=== PATIENT | male | born 1970 | race Caucasian/White ===

== ENCOUNTER 2017-04-10 21:53 | Inpatient (IN) | payer MEDICARE, MEDICAID ==
[~2017-04-10] VITALS: Ht 170.2 cm; Wt 91.6 kg
[~2017-04-10 21:53] MED LIST: ALBU8.5H8 INH; ATOR20TA64 PO; CANA300T PO; CLON0.5T4 PO; DIAZ5TAB4 PO; DULO60CA41 PO; FENO48TA4 PO; FLO110 INH; INSU100V9 SUBCUT; ISOS30TA PO; LISD10CA PO; LOSA1TAB34 PO; METF1000 PO; METO25TA3 PO; NITSL SL; OXYC-133 PO; PANT20TA2 PO; POTA-118 PO; PREG75CA PO; ZOLP10TA2 PO
[2017-04-10 21:56] VITALS: BP_SYST 168
[2017-04-10] MEDS ORDERED: NACL 0.9% 1,000 ML IV ONE (22:14)
[2017-04-10] MEDS ORDERED: ASPIRIN 81 MG TAB.CHEW PO ONE (22:15)
[2017-04-10 22:33] LABS: BASOPHILS % (AUTO) 0.5 % (0.0-2.0); EOSINOPHILS % (AUTO) 0.6 % (0.0-4.0); HEMATOCRIT 47.7 % (36-54); HEMOGLOBIN 15.9 g/dL (14.0-18.0); LYMPHOCYTES # (AUTO) 2.2 K/uL (1.0-5.5); MEAN CORPUSCULAR HEMOGLOBIN 29 pg (27-31); MEAN CORPUSCULAR HGB CONC 33 % (32-36); MEAN CORPUSCULAR VOLUME 88 fL (79.0-98.0); MONOCYTES # (AUTO) 0.5 K/uL (0.0-1.0); MONOCYTES % (AUTO) 6.7 % (1.7-9.3); NEUTROPHILS # (AUTO) 5.2 K/uL (1.8-7.7); NEUTROPHILS % (AUTO) 64.2 % (40.0-70.0); PLATELET COUNT (AUTO) 293 K/uL (130-430); RED BLOOD CELL COUNT(AUTO) 5.45 MIL/uL (4.2-6.2); RED CELL DISTRIBUTION WIDTH 13.1 % (9.0-15.0); WHITE BLOOD COUNT (AUTO) 7.9 K/uL (4.8-10.8)
[2017-04-10 22:35] LABS: ANION GAP 10 (5-15); CALCIUM 9.7 mg/dL (8.4-11.0); CHLORIDE 103 mmol/L (98-107); CREATININE 0.91 mg/dL (0.55-1.30); GLUCOSE 125 mg/dL (70-99); POTASSIUM 3.2 mmol/L (3.5-5.1); SODIUM SERUM 139 mmol/L (136-145); UREA NITROGEN, BLOOD 9 mg/dL (8-21)
[2017-04-10 22:36] LABS: GFR AFRICAN AMERICAN 115 mL/min (>90)
[2017-04-10 22:38] LABS: PROTHROMBIN TIME 10.6 SECS (9.5-12.5)
[2017-04-10 22:44] LABS: ALANINE AMINOTRANSFERASE 31 U/L (12-78); ALBUMIN 4.5 g/dL (3.4-4.8); ASPARTATE AMINOTRANSFERASE 20 U/L (10-37); TOTAL BILIRUBIN 0.7 mg/dL (0.0-1.0)
[2017-04-10] MEDS ORDERED: NITROGLYCERIN 1 INCH (GM) OINT. TP ONE (22:45)
[2017-04-10] MEDS ORDERED: MORPHINE 2 MG/ML INJ. SYRINGE IVP ONE (23:15)
[2017-04-10] MEDS ORDERED: BUSP10TA3 PO (23:52)
[2017-04-10] MEDS ORDERED: GLIP5TAB13 PO (23:52)
[2017-04-10] MEDS ORDERED: CLOP75TA2 PO (23:52)
[2017-04-11] VITALS (7 sets, daily range): BP systolic 93–140
[2017-04-11] MEDS ORDERED: POTASSIUM CHLORIDE 20 MEQ TAB.PRT.SR PO ONE (01:00)
[2017-04-11] MEDS ORDERED: DIAZEPAM 5 MG TABLET (VALIUM) PO PRN (01:15)
[2017-04-11] MEDS ORDERED: ZOLPIDEM TARTRATE 5 MG TABLET PO PRN (01:15)
[2017-04-11] MEDS ORDERED: DEXTROSE 50% JECT 50 ML DISP.SYRIN IVP PRN (01:15)
[2017-04-11] MEDS ORDERED: clonazePAM 0.5 MG TABLET PO PRN (01:15)
[2017-04-11] MEDS: metFORMIN HCL 500 MG TABLET PO SCH ×2 (08:09→17:14)
[2017-04-11] MEDS: CANAGLIFLOZIN 300 MG TABLET PO SCH ×2 (08:53→09:16)
[2017-04-11] MEDS: LOSARTAN POTASSIUM 50 MG TABLET (COZAAR) PO SCH (09:00)
[2017-04-11] MEDS ORDERED: NON-FORMULARY MEDICATION (Isosorbide Dinitrate 30 MG) PO SCH (09:00)
[2017-04-11] MEDS: HYDROCHLOROTHIAZIDE 12.5 MG CAPSULE (HCTZ) PO SCH (09:00)
[2017-04-11] MEDS ORDERED: INSULIN GLARGINE 100 UNITS/ML 10 ML VIAL SUBCUT SCH (09:00)
[2017-04-11] MEDS ORDERED: LOSARTAN/HYDROCHLOROTHIAZIDE TAB (HYZAAR 50-12.5 MG) PO SCH (09:00)
[2017-04-11] MEDS ORDERED: LISDEXAMFETAMINE DIMESYLATE 10 MG PO SCH (09:00)
[2017-04-11] MEDS: ENOXAPARIN SODIUM 40 MG/0.4 ML SYRINGE SUBCUT SCH (09:15)
[2017-04-11] MEDS: busPIRone HCL 5 MG TABLET PO SCH ×2 (09:16→20:43)
[2017-04-11] MEDS: PREGABALIN 25 MG CAPSULE (LYRICA) PO SCH ×3 (09:16→20:41)
[2017-04-11] MEDS: FENOFIBRATE NANOCRYSTALLIZED 48 MG TABLET (TRICOR) PO SCH (09:16)
[2017-04-11] MEDS: CLOPIDOGREL BISULFATE 75 MG TABLET PO SCH (09:16)
[2017-04-11] MEDS: METOPROLOL SUCCINATE 25 MG TAB.SR.24H (TOPROL XL) PO SCH ×2 (09:17→20:42)
[2017-04-11] MEDS: DULoxetine HCL 30 MG CAPSULE.DR (CYMBALTA) PO SCH (09:17)
[2017-04-11] MEDS: POTASSIUM CHLORIDE 10 MEQ TAB.PRT.SR PO SCH (09:17)
[2017-04-11] MEDS: PANTOPRAZOLE SODIUM 40 MG TAB PO SCH (09:24)
[2017-04-11 09:27] LABS: CALCIUM 8.5 mg/dL (8.4-11.0); CHLORIDE 102 mmol/L (98-107); CREATININE 0.88 mg/dL (0.55-1.30); GLUCOSE 167 mg/dL (70-99); POTASSIUM 3.3 mmol/L (3.5-5.1); UREA NITROGEN, BLOOD 10 mg/dL (8-21)
[2017-04-11 09:52] LABS: ANION GAP 15 (5-15); GFR AFRICAN AMERICAN 119 mL/min (>90); SODIUM SERUM 141 mmol/L (136-145)
[2017-04-11 11:08] LABS: CHOLESTEROL 238 mg/dL (<200); TRIGLYCERIDES 345 mg/dL (30-150)
[2017-04-11 11:09] LABS: HDL CHOLESTEROL 33 mg/dL (>45); LDL CHOLESTEROL 132 mg/dL (<100)
[2017-04-11] MEDS ORDERED: ISOSORBIDE MONONITRATE 30 MG TAB.ER.24H PO ONE (11:45)
[2017-04-11] MEDS: OXYCODONE/ACETAMINOPHEN *10*mg/325 mg TABLET PO PRN ×2 (13:06→20:41)
[2017-04-11] MEDS: NITROGLYCERIN 0.4 MG TAB.SUBL SL PRN ×2 (17:14→23:50)
[2017-04-11] MEDS: INSULIN REGULAR, HUMAN 100 UNITS/ML, 10 ML VIAL (novoLIN R) SUBCUT PRN ×2 (17:29→20:50)
[2017-04-11] MEDS: ATORVASTATIN 20 MG TABLET PO SCH (20:43)
[2017-04-12 01:22] VITALS: BP_SYST 109
[2017-04-12 04:12] VITALS: BP_SYST 102
[2017-04-12] MEDS: NITROGLYCERIN 0.4 MG TAB.SUBL SL PRN ×4 (05:09→21:29)
[2017-04-12] MEDS: CANAGLIFLOZIN 300 MG TABLET PO SCH (05:58)
[2017-04-12] MEDS: OXYCODONE/ACETAMINOPHEN *10*mg/325 mg TABLET PO PRN (06:03)
[2017-04-12 06:22] LABS: BASOPHILS % (AUTO) 0.3 % (0.0-2.0); EOSINOPHILS # (AUTO) 0.2 K/uL (0.0-0.4); EOSINOPHILS % (AUTO) 2.3 % (0.0-4.0); HEMATOCRIT 42.3 % (36-54); HEMOGLOBIN 13.9 g/dL (14.0-18.0); LYMPHOCYTES # (AUTO) 2.3 K/uL (1.0-5.5); MEAN CORPUSCULAR HEMOGLOBIN 29 pg (27-31); MEAN CORPUSCULAR HGB CONC 33 % (32-36); MEAN CORPUSCULAR VOLUME 89 fL (79.0-98.0); MONOCYTES # (AUTO) 0.4 K/uL (0.0-1.0); MONOCYTES % (AUTO) 6.7 % (1.7-9.3); NEUTROPHILS # (AUTO) 3.7 K/uL (1.8-7.7); NEUTROPHILS % (AUTO) 55.7 % (40.0-70.0); PLATELET COUNT (AUTO) 275 K/uL (130-430); RED BLOOD CELL COUNT(AUTO) 4.76 MIL/uL (4.2-6.2); RED CELL DISTRIBUTION WIDTH 13.3 % (9.0-15.0); WHITE BLOOD COUNT (AUTO) 6.6 K/uL (4.8-10.8)
[2017-04-12 07:46] VITALS: BP_SYST 113
[2017-04-12] MEDS: PANTOPRAZOLE SODIUM 40 MG TAB PO SCH (08:47)
[2017-04-12] MEDS: DULoxetine HCL 30 MG CAPSULE.DR (CYMBALTA) PO SCH (08:47)
[2017-04-12] MEDS: POTASSIUM CHLORIDE 10 MEQ TAB.PRT.SR PO SCH (08:47)
[2017-04-12] MEDS: busPIRone HCL 5 MG TABLET PO SCH ×2 (08:47→21:09)
[2017-04-12] MEDS: PREGABALIN 25 MG CAPSULE (LYRICA) PO SCH ×3 (08:48→21:08)
[2017-04-12] MEDS: metFORMIN HCL 500 MG TABLET PO SCH ×2 (08:48→17:30)
[2017-04-12] MEDS: FENOFIBRATE NANOCRYSTALLIZED 48 MG TABLET (TRICOR) PO SCH (08:48)
[2017-04-12] MEDS: ISOSORBIDE MONONITRATE 30 MG TAB.ER.24H PO SCH (08:48)
[2017-04-12] MEDS: LOSARTAN POTASSIUM 50 MG TABLET (COZAAR) PO SCH (08:48)
[2017-04-12] MEDS: CLOPIDOGREL BISULFATE 75 MG TABLET PO SCH (08:49)
[2017-04-12] MEDS: METOPROLOL SUCCINATE 25 MG TAB.SR.24H (TOPROL XL) PO SCH ×2 (08:49→21:10)
[2017-04-12] MEDS: HYDROCHLOROTHIAZIDE 12.5 MG CAPSULE (HCTZ) PO SCH (08:50)
[2017-04-12] MEDS: ENOXAPARIN SODIUM 40 MG/0.4 ML SYRINGE SUBCUT SCH (08:50)
[2017-04-12] MEDS: LISDEXAMFETAMINE 10 MG PO SCH (08:51)
[2017-04-12 12:40] VITALS: BP_SYST 103
[2017-04-12 16:18] VITALS: BP_SYST 94
[2017-04-12] MEDS: INSULIN REGULAR, HUMAN 100 UNITS/ML, 10 ML VIAL (novoLIN R) SUBCUT PRN (17:35)
[2017-04-12 20:00] VITALS: BP_SYST 113
[2017-04-12] MEDS: ATORVASTATIN 20 MG TABLET PO SCH (21:09)
[2017-04-13] VITALS (7 sets, daily range): BP systolic 119–135
[2017-04-13] MEDS: NITROGLYCERIN 0.4 MG TAB.SUBL SL PRN ×4 (04:50→22:14)
[2017-04-13] MEDS: CANAGLIFLOZIN 300 MG TABLET PO SCH (05:56)
[2017-04-13] MEDS: metFORMIN HCL 500 MG TABLET PO SCH ×2 (08:00→17:34)
[2017-04-13] MEDS: PREGABALIN 25 MG CAPSULE (LYRICA) PO SCH ×3 (09:00→22:18)
[2017-04-13] MEDS: CLOPIDOGREL BISULFATE 75 MG TABLET PO SCH (09:00)
[2017-04-13] MEDS: FENOFIBRATE NANOCRYSTALLIZED 48 MG TABLET (TRICOR) PO SCH (09:00)
[2017-04-13] MEDS: DULoxetine HCL 30 MG CAPSULE.DR (CYMBALTA) PO SCH (09:00)
[2017-04-13] MEDS: ENOXAPARIN SODIUM 40 MG/0.4 ML SYRINGE SUBCUT SCH (09:00)
[2017-04-13] MEDS: POTASSIUM CHLORIDE 10 MEQ TAB.PRT.SR PO SCH (09:00)
[2017-04-13] MEDS: busPIRone HCL 5 MG TABLET PO SCH ×2 (09:00→22:19)
[2017-04-13] MEDS: ISOSORBIDE MONONITRATE 30 MG TAB.ER.24H PO SCH (09:00)
[2017-04-13] MEDS: METOPROLOL SUCCINATE 25 MG TAB.SR.24H (TOPROL XL) PO SCH ×2 (09:00→22:18)
[2017-04-13] MEDS: LISDEXAMFETAMINE 10 MG PO SCH (09:00)
[2017-04-13] MEDS: PANTOPRAZOLE SODIUM 40 MG TAB PO SCH (09:00)
[2017-04-13] MEDS: LOSARTAN POTASSIUM 50 MG TABLET (COZAAR) PO SCH (09:00)
[2017-04-13] MEDS ORDERED: REGADENOSON 0.4 MG/5 ML SYRINGE IVP ONE (09:00)
[2017-04-13] MEDS: HYDROCHLOROTHIAZIDE 12.5 MG CAPSULE (HCTZ) PO SCH (09:00)
[2017-04-13] MEDS: OXYCODONE/ACETAMINOPHEN *10*mg/325 mg TABLET PO PRN ×2 (13:32→22:15)
[2017-04-13] MEDS: ACETAMINOPHEN 500 MG TABLET PO PRN (16:39)
[2017-04-13] MEDS: INSULIN REGULAR, HUMAN 100 UNITS/ML, 10 ML VIAL (novoLIN R) SUBCUT PRN ×2 (17:35→22:28)
[2017-04-13] MEDS: ATORVASTATIN 20 MG TABLET PO SCH (22:19)
[2017-04-14] VITALS: BP_SYST 123
[2017-04-14 04:00] VITALS: BP_SYST 125
[2017-04-14] MEDS: CANAGLIFLOZIN 300 MG TABLET PO SCH (06:14)
[2017-04-14] MEDS: ACETAMINOPHEN 500 MG TABLET PO PRN (06:17)
[2017-04-14] MEDS: INSULIN REGULAR, HUMAN 100 UNITS/ML, 10 ML VIAL (novoLIN R) SUBCUT PRN ×2 (06:19→14:10)
[2017-04-14 08:00] VITALS: BP_SYST 143
[2017-04-14] MEDS: LOSARTAN POTASSIUM 50 MG TABLET (COZAAR) PO SCH (09:00)
[2017-04-14] MEDS: LISDEXAMFETAMINE 10 MG PO SCH (09:00)
[2017-04-14] MEDS: ISOSORBIDE MONONITRATE 30 MG TAB.ER.24H PO SCH (09:00)
[2017-04-14] MEDS: HYDROCHLOROTHIAZIDE 12.5 MG CAPSULE (HCTZ) PO SCH (09:00)
[2017-04-14] MEDS: FENOFIBRATE NANOCRYSTALLIZED 48 MG TABLET (TRICOR) PO SCH (09:13)
[2017-04-14] MEDS: busPIRone HCL 5 MG TABLET PO SCH (09:13)
[2017-04-14] MEDS: CLOPIDOGREL BISULFATE 75 MG TABLET PO SCH (09:13)
[2017-04-14] MEDS: POTASSIUM CHLORIDE 10 MEQ TAB.PRT.SR PO SCH (09:13)
[2017-04-14] MEDS: METOPROLOL SUCCINATE 25 MG TAB.SR.24H (TOPROL XL) PO SCH (09:14)
[2017-04-14] MEDS: PANTOPRAZOLE SODIUM 40 MG TAB PO SCH (09:14)
[2017-04-14] MEDS: metFORMIN HCL 500 MG TABLET PO SCH (09:14)
[2017-04-14] MEDS: ENOXAPARIN SODIUM 40 MG/0.4 ML SYRINGE SUBCUT SCH (09:15)
[2017-04-14] MEDS: PREGABALIN 25 MG CAPSULE (LYRICA) PO SCH (09:15)
[2017-04-14] MEDS: DULoxetine HCL 30 MG CAPSULE.DR (CYMBALTA) PO SCH (09:15)
[2017-04-14 11:47] VITALS: BP_SYST 143
== END 2017-04-14 23:09 | disposition short-term general hospital (02) | DRG 313 ==
LOC: SED 21:53 → STU 23:36
PROVIDERS: ADMIT Internal Medicine; ATTEND Internal Medicine
DX: R07.89 Other chest pain (principal); I24.9 Acute ischemic heart disease, unspecified; S09.90XA Unspecified injury of head, initial encounter; I10 Essential (primary) hypertension; E78.5 Hyperlipidemia, unspecified; F32.9 Major depressive disorder, single episode, unspecified; F43.10 Post-traumatic stress disorder, unspecified; E66.9 Obesity, unspecified; E11.9 Type 2 diabetes mellitus without complications; G89.4 Chronic pain syndrome; M19.90 Unspecified osteoarthritis, unspecified site; I25.10 Atherosclerotic heart disease of native coronary artery without angina pectoris; W18.39XA Other fall on same level, initial encounter; Z82.49 Family history of ischemic heart disease and other diseases of the circulatory system; Z95.5 Presence of coronary angioplasty implant and graft; Z79.84 Long term (current) use of oral hypoglycemic drugs; Z79.4 Long term (current) use of insulin; Z71.3 Dietary counseling and surveillance; I25.2 Old myocardial infarction; Z79.899 Other long term (current) drug therapy; Z88.0 Allergy status to penicillin; Z88.6 Allergy status to analgesic agent; Z91.030 Bee allergy status; Y93.89 Activity, other specified; Y92.89 Other specified places as the place of occurrence of the external cause; Y99.8 Other external cause status
CPT/HCPCS: 36415; 70450-TC; 71010; 80048; 80053; 80061; 82962; 84443-TC; 84484; 85025; 85379; 85610-TC; 85730-TC; 93005; 93017; 93306; 96360; 96361; 99285; A9500; J1650; J1815; J2270; J2785; J7030